=== PATIENT | female | born 1995 | race Hispanic/Latino ===

== ENCOUNTER 2022-02-16 12:56 | Emergency (ER) | payer MEDICAID, SELFPAY | END 2022-02-16 14:50 | disposition home or self-care (01) | LOC: CSHERS 12:56 | DX: J02.0 Streptococcal pharyngitis (principal); K21.9 Gastro-esophageal reflux disease without esophagitis; Z87.891 Personal history of nicotine dependence | CPT/HCPCS: 87430; 99283 ==

== ENCOUNTER 2025-05-30 14:44 | Emergency (ER) | payer OTHER, SELFPAY ==
[2025-05-30] MEDS ORDERED: Ibuprofen 200 MG TAB ONE (17:10)
== END 2025-05-30 17:23 | disposition home or self-care (01) ==
LOC: CSHERS 14:44
DX: L04.0 Acute lymphadenitis of face, head and neck (principal); Z75.8 Other problems related to medical facilities and other health care; Z87.891 Personal history of nicotine dependence
CPT/HCPCS: 87081; 87430; 99283